=== PATIENT | male | born 1995 | race Caucasian/White ===

== ENCOUNTER 2017-01-13 22:11 | Emergency (ER) | payer BC ==
[~2017-01-13] VITALS: Ht 182.9 cm; Wt 77.1 kg
[2017-01-13 22:16] VITALS: BP 133/75
--- NOTE | 2017-01-13 22:37 | NUR ---
ORAL TEMP 98.1. PT STATES TOOK IBUPROFEN.
[2017-01-13] MEDS ORDERED: FAMOTIDINE (20 MG) 20 MG TABLET ONE (22:50)
[2017-01-13] MEDS ORDERED: LIDOCAINE VISCOUS 2% UD 15 ML UDC ONE (22:51)
[2017-01-13] MEDS ORDERED: IV SET PRIMARY 1 EA INFUS.SET MC ONE (22:51)
[2017-01-13] MEDS ORDERED: IV NS 0.9% 0 ML IV ONE (22:51)
[2017-01-13] MEDS ORDERED: MAG HYDROX/AL HYDROX/SIMETH 30 ML UDC ONE (22:51)
[2017-01-13] MEDS ORDERED: LIDOCAINE VISCOUS 2% UD 15 ML UDC MM ONE (23:00)
[2017-01-13] MEDS ORDERED: FAMOTIDINE (20 MG) 20 MG TABLET PO ONE (23:00)
[2017-01-13] MEDS ORDERED: IV NS 0.9% 500 ML BAG IV ONE (23:00)
[2017-01-13] MEDS ORDERED: MORPHINE SULFATE INJ 2 MG/ML DISP.SYRIN IV ONE (23:00)
[2017-01-13] MEDS ORDERED: MAG HYDROX/AL HYDROX/SIMETH 30 ML UDC PO ONE (23:00)
== END 2017-01-13 23:19 | disposition home or self-care (01) ==
LOC: ER 22:15
DX: J06.9 Acute upper respiratory infection, unspecified (principal); R51 Headache
CPT/HCPCS: 99281; A4606; Z7610; J7040; Z7502

== ENCOUNTER 2017-03-22 14:08 | Emergency (ER) | payer BC ==
[~2017-03-22] VITALS: Ht 182.9 cm; Wt 79.4 kg
[2017-03-22 14:14] VITALS: BP 126/82
== END 2017-03-22 14:43 | disposition home or self-care (01) ==
LOC: ER 14:09
DX: H66.91 Otitis media, unspecified, right ear (principal)
CPT/HCPCS: A4606; Z7610

== ENCOUNTER 2019-01-29 13:10 | Emergency (ER) | payer MEDICAID ==
[~2019-01-29] VITALS: Ht 185.4 cm; Wt 81.6 kg
[2019-01-29 13:15] VITALS: BP 136/62
== END 2019-01-29 15:38 | disposition home or self-care (01) ==
LOC: ER 13:10
DX: J30.9 Allergic rhinitis, unspecified (principal); R09.82 Postnasal drip; J06.9 Acute upper respiratory infection, unspecified
CPT/HCPCS: 86403-TC; 87070-TC